=== PATIENT | female | born 1970 | race Caucasian/White ===

== ENCOUNTER → 2016-12-30 | Outpatient (CLI) | payer BC ==
[2016-12-30 17:38] LABS: Basophils # (A) 0.1 k/uL (0-0.2); Basophils % (A) 1 %; CHCM 33.1; Eosinophils # (A) 0.3 k/uL (0-0.7); Eosinophils % (A) 3 %; HCT 42.5 % (34.0-46.0); HDW 2.48; HGB 14.1 gm/dL (11.4-16.0); Luc # (Auto) 0.17; Luc % (Auto) 2; Lymphocytes # (A) 2.8 k/uL (1.0-4.8); Lymphocytes % (A) 26 %; MCH 30.2 pg (25.0-35.0); MCHC 33.1 g/dL (31.0-37.0); MCV 91.2 fL (80.0-100.0); Monocytes # (A) 0.4 k/uL (0-1.0); Monocytes % (A) 4 %; Neutrophils % (A) 66 %; RBC 4.66 m/uL (3.80-5.40); RDW 13.5 % (11.5-15.5); WBC 10.7 k/uL (3.8-10.6); WBC (Perox) 11.02
== END | disposition home or self-care (01) ==
LOC: LABPAT 17:19
PROVIDERS: ATTEND Obstetrics & Gynecology
DX: Z01.812 Encounter for preprocedural laboratory examination (principal)
CPT/HCPCS: 36415; 85025

== ENCOUNTER 2017-01-09 06:17 | Day surgery (SDC) | payer BC ==
[2017-01-07 11:25] VITALS: BMI 26.5
--- NOTE | 2017-01-08 20:41 | P.HPOB ---
History of Present Illness H&P Date: 01/08/17 Chief Complaint: Menorrhagia This is a 46-year-old female 1 para 1 who presents for dilation and curettage with hysteroscopy and NovaSure endometrial ablation secondary to menorrhagia. Her menses are occurring every 3-4 weeks and lasting up to 6-7 days with at least 2-4 days very heavy with large clots. Is been worsening over the last 6-7 months. Pelvic ultrasound showed uterus is retroverted, measuring 7.9 x 4.5 x 4.8 cm. There is a small fundal fibroid measuring up to 2.5 cm. Both ovaries appear normal with small follicle cyst. Endometrial thickness was 1 cm. Obstetrical history: . History of 1 vaginal delivery. Gynecologic history: No history of sexual transmitted diseases. She has had a tubal ligation. Social history: She is . She works as a quality control systems manager Review of Systems Constitutional: Denies chills, Denies fever Ears, nose, mouth and throat: Reports vertigo (Occasional), Denies headache, Denies sore throat Cardiovascular: Denies chest pain, Denies shortness of breath Respiratory: Denies cough Gastrointestinal: Reports abdominal pain (Occasional left lower quadrant pain approximately every 3-4 months.), Reports bloating, Denies constipation, Denies diarrhea, Denies heartburn Genitourinary: Reports dysmenorrhea, Reports menorrhagia Menstruation: Reports menses variable, Reports period heavy Musculoskeletal: Denies myalgias Neurological: Denies numbness, Denies weakness Psychiatric: Reports insomnia, Denies anxiety, Denies depression Endocrine: Denies fatigue, Denies weight change Past Medical History Past Medical History: No Reported History History of Any Multi-Drug Resistant Organisms: None Reported Past Surgical History: Tubal Ligation Past Anesthesia/Blood Transfusion Reactions: Family History of Problems w/ Anesthesia Additional Past Anesthesia/Blood Transfusion Reaction / Comment(s): MOTHER- PONV Past Psychological History: No Psychological Hx Reported Smoking Status: Current every day smoker Past Alcohol Use History: Rare Additional Past Alcohol Use History / Comment(s): STARTED SMOKING AT AGE 17 SMOKES 1/2PPD Past Drug Use History: None Reported - Past Family History Mother Family Medical History: Cancer Additional Family Medical History / Comment(s): LUNG AND PANCREATIC CANCER Medications and Allergies Home Medications Medication Instructions Recorded Confirmed Type No Known Home Medications [No 01/07/17 01/07/17 History Known Home Medications] Allergies Allergy/AdvReac Type Severity Reaction Status Date / Time erythromycin base Allergy Rash/Hives Verified 01/07/17 11:07 Exam Osteopathic Statement: *. No significant issues noted on an osteopathic structural exam other than those noted in the History and Physical/Consult. HEENT: Within normal limits Heart: Regular rate and rhythm Lungs: Clear to auscultation bilaterally Abdomen: Soft, nontender Pelvic exam: Uterus is retroverted, nontender, with no adnexal masses or tenderness noted. Extremities: Negative Homans Assessment and Plan (1) Menorrhagia with regular cycle Status: Acute Plan: Proceed with dilation and curettage with hysteroscopy and NovaSure endometrial ablation. I have discussed the risks, benefits, and alternative therapies for the above- mentioned procedure and for both sedation/anesthesia as well as necessary blood products administration, if indicated, as they pertain to this patient. The patient has indicated her understanding and acceptance of the risks and procedures discussed.
[~2017-01-09 06:17] MED LIST: DEXAMETHASONE SOD PHOSPHATE 10 MG/ML 1 ML VIAL IV ONE; HYDROmorphone 1 MG/ML 1 ML SYRINGE IVP PRN; LACTATED RINGERS 1,000 ML IV SCH; ONDANSETRON 4 MG/2 ML VIAL IVP ONE; Pre Op ABX Message 1 EACH MISC MISCELLANE ONE
[2017-01-09] MEDS ORDERED: LIDOCAINE 1% 20 ML VIAL (10MG/ML) FOR IV START INTRADERMA ONE (06:43)
[2017-01-09] MEDS ORDERED: PROPOFOL 10 MG/ML 20 ML VIAL IV ONE (07:38)
[2017-01-09] MEDS ORDERED: MIDAZOLAM 2 MG/2 ML VIAL ONE (07:38)
[2017-01-09] MEDS ORDERED: LIDOCAINE 1% INJ 10MG/ML (20 ML MDV) ONE (07:38)
[2017-01-09] MEDS ORDERED: fentaNYL (PF) 50 MCG/ML 2 ML AMP ONE (07:38)
[2017-01-09] MEDS ORDERED: KETOROLAC 30 MG/ML 1 ML VIAL ONE (07:38)
--- NOTE | 2017-01-09 08:03 | P.OP ---
Date of Procedure: 01/09/17 Preoperative Diagnosis: Menorrhagia Postoperative Diagnosis: Same Procedure(s) Performed: Hysteroscopy with dilation and curettage and NovaSure endometrial ablation Anesthesia: other (Mask general) Surgeon: Syeda Tejeda Estimated Blood Loss (ml): 2 Pathology: other (Endometrial curettings) Condition: stable Disposition: same day Indications for Procedure: This is a 46-year-old female 1 para 1 who presents for dilation and curettage with hysteroscopy and NovaSure endometrial ablation secondary to menorrhagia. Her menses are occurring every 3-4 weeks and lasting up to 6-7 days with at least 2-4 days very heavy with large clots. Is been worsening over the last 6-7 months. Pelvic ultrasound showed uterus is retroverted, measuring 7.9 x 4.5 x 4.8 cm. There is a small fundal fibroid measuring up to 2.5 cm. Both ovaries appear normal with small follicle cyst. Endometrial thickness was 1 cm. Operative Findings: Uterus is retroverted, sounded to 8 Cm. Cervix is sounded to 3 cm. Upon hysteroscopy a relatively smooth endometrial contour was noted with minimal breakdown of tissue. Both tubal ostia are visualized. Minimal endometrial curettings are obtained. Description of Procedure: The patient is taken to the operating room. She is placed in the dorsal lithotomy position after general anesthesia was given. She is prepped and draped in the normal sterile fashion. Bladder is drained with a catheter and then removed. Pelvic exam is performed under anesthesia. Uterus is found to be retroverted with no adnexal masses. She is placed in slight Trendelenburg position. A right angle retractor is used to visualize the cervix. The anterior lip of the cervix is grasped with a single-tooth tenaculum. Cervix is sounded to 3 cm. Uterus is sounded to 8.5 cm. Cervix is gently dilated with Navarro dilators until a hysteroscope could be passed. Hysteroscopy is performed using normal saline. The above noted findings are noted. Next a polyp forceps is introduced. Scant tissue was obtained. Next medium-sized size sharp curette was placed. A minimal amount of endometrial curettings were obtained. Next NovaSure array was inserted into the endometrial cavity. Length was set at 5.5 cm and width was determined to be 4.6 cm. Next cavity assessment was completed and passed on the first try. Next NovaSure array was fired at 139 W for 68 seconds. Next the array was removed, inspected and then discarded. Next the hysteroscope was reinserted. Uniform charring was noted. Pictures were taken. Hysteroscope was removed. Single-tooth tenaculum was removed from the anterior lip of the cervix. Minimal bleeding was noted. All other instruments removed from the vagina. Sponge counts were correct. Patient is taken to recovery room in stable condition.
[2017-01-09 08:32] VITALS: TEMP 98.1
[2017-01-09 09:14] VITALS: RESP 18
[2017-01-09 09:26] VITALS: BP 136/75; PULSE 56
== END 2017-01-09 09:36 | disposition home or self-care (01) ==
LOC: OR 06:17
PROVIDERS: ATTEND Obstetrics & Gynecology
DX: N92.0 Excessive and frequent menstruation with regular cycle (principal); N85.4 Malposition of uterus; D25.9 Leiomyoma of uterus, unspecified; N83.00 Follicular cyst of ovary, unspecified side; N97.1 Female infertility of tubal origin; F17.200 Nicotine dependence, unspecified, uncomplicated; Z88.1 Allergy status to other antibiotic agents
CPT/HCPCS: 81025; 58563; J2250; J1100; J2405; J2001; J3010; J1885; J2704; 88305